=== PATIENT | female | born 1930 | race Caucasian/White ===

== ENCOUNTER 2018-11-24 18:30 | Emergency (ER) | payer MEDICARE, BC ==
[2018-11-24] MEDS ORDERED: Aspirin 81 MG Tab.Chew ONE (18:44)
[2018-11-24] MEDS ORDERED: Nitroglycerin 0.4 MG Tab.SL ONE (18:44)
[2018-11-24] MEDS ORDERED: Nitroglycerin 0.4 MG Tab.SL SL PRN (18:47)
[2018-11-24 18:54] VITALS: BP 150/53
[2018-11-24] MEDS ORDERED: Sodium Chloride 0.9% 10 ML Syringe FLUSH PRN (18:55)
--- NOTE | 2018-11-24 19:09 | EDM.PDOC ---
ED HPI GENERAL MEDICAL PROBLEM - General Chief Complaint: Chest Pain Stated Complaint: CHEST PAIN Time Seen by Provider: 11/24/18 18:50 Source of Information: Reports: Patient, Family History Limitations: Reports: No Limitations - History of Present Illness INITIAL COMMENTS - FREE TEXT/NARRATIVE: Mirta presents with her daughter for CP one hour ago. Patient was standing in the kitchen, CP started sudden, center of chest, radiated to her right side of her back and pulsatile like pain up her right carotid artery which was the most concerning symptom patient stated. She rates it a 8/10 described the CP heaviness and squeezing like CP. She denies any diaphoresis, nausea, or Shortness of breath. Hx of SD in the past with multiple stents, last stent placed in [facility] in 2006. Recent had a full physical with normal findings. She has been taking her plavix daily along with her other cardiac medications. She is severely allergic to ASA. Mid-Sternal Chest Pain Score (Numeric/FACES): 8 - Related Data Allergies Allergy/AdvReac Type Severity Reaction Status Date / Time aspirin Allergy Anaphylactic Verified 11/24/18 18:46 Shock codeine Allergy Confusion Verified 11/24/18 18:46 dextrose [From Metamucil] Allergy Respiratory Verified 11/24/18 18:46 Distress Fish Containing Products Allergy Anaphylactic Verified 11/24/18 18:46 Shock psyllium husk Allergy Respiratory Verified 11/24/18 18:46 [From Metamucil] Distress psyllium seed Allergy Respiratory Verified 11/24/18 18:46 [From Metamucil] Distress sucrose [From Metamucil] Allergy Respiratory Verified 11/24/18 18:46 Distress tramadol Allergy Confusion Verified 11/24/18 18:46 soy Allergy Anaphylactic Uncoded 11/24/18 18:46 Shock Home Meds: Home Meds Albuterol [Ventolin HFA] 2 puff INH TID PRN 11/11/14 [History] Cholecalciferol (Vitamin D3) [Vitamin D3] 800 unit PO BID 11/11/14 [History] Clopidogrel Bisulfate [Clopidogrel] 75 mg PO DAILY 11/11/14 [History] Fluticasone Propionate [Flovent HFA 110 MCG] 2 puff INH BID 11/11/14 [History] Rosuvastatin Calcium [Crestor] 10 mg PO BEDTIME 11/11/14 [History] amLODIPine Besylate [Amlodipine Besylate] 5 mg PO DAILY 11/11/14 [History] Cholecalciferol (Vitamin D3) [Vitamin D3] 2,000 unit PO SA 11/12/14 [History] Vitamin E (dl, acetate) [Vitamin E] 400 units PO DAILY 11/12/14 [History] Nitroglycerin [Nitrostat] 0.4 mg SL Q5M PRN 11/24/18 [History] Past Medical History HEENT History: Reports: Impaired Vision Cardiovascular History: Reports: High Cholesterol, Hypertension, SD, Stents Respiratory History: Reports: Asthma Gastrointestinal History: Reports: Chronic Constipation, Hemorrhoids, Other ( See Below) Other Gastrointestinal History: diverticulitis [employer]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 Dermatologic History: Reports: Psoriasis - Infectious Disease History Infectious Disease History: Reports: Chicken Pox, Measles, Shingles - Past Surgical History Other Neurological Surgeries/Procedures: Encephalitis. Social & Family History - Family History Family Medical History: Noncontributory - Caffeine Use Caffeine Use: Reports: Coffee ED ROS GENERAL - Review of Systems Review Of Systems: See Below Constitutional: Reports: No Symptoms HEENT: Reports: No Symptoms Respiratory: Reports: No Symptoms Cardiovascular: Reports: Chest Pain Endocrine: Reports: Fatigue GI/Abdominal: Reports: No Symptoms Musculoskeletal: Reports: Back Pain Skin: Reports: No Symptoms Neurological: Reports: No Symptoms Psychiatric: Reports: No Symptoms Hematologic/Lymphatic: Reports: No Symptoms Immunologic: Reports: No Symptoms ED EXAM, GENERAL - Physical Exam Exam: See Below Exam Limited By: No Limitations General Appearance: Alert, WD/WN, No Apparent Distress Ears: Normal External Exam, Normal Canal, Hearing Grossly Normal Nose: Normal Inspection, Normal Mucosa Throat/Mouth: Normal Inspection, Normal Voice, No Airway Compromise Head: Atraumatic, Normocephalic Neck: Normal Inspection, Supple, Non-Tender, Full Range of Motion Respiratory/Chest: No Respiratory Distress, Lungs Clear Cardiovascular: Normal Peripheral Pulses, Regular Rate, Rhythm, No Gallop, No JVD, No Murmur, Other (mild pedal edema, non pitting, no carotid bruits) Peripheral Pulses: 2+: Carotid (L), Carotid (R), Radial (L), Radial (R), Posterior Tibial (L), Posterior Tibial (R), Dorsalis Pedis (L), Dorsalis Pedis ( R) GI/Abdominal: Normal Bowel Sounds, Soft, Non-Tender (Female) Exam: Deferred Back Exam: Other (kyphosis ) Extremities: Non-Tender, Normal Capillary Refill Neurological: Alert, Oriented, Normal Cognition, No Motor/Sensory Deficits Psychiatric: Normal Affect, Normal Mood Skin Exam: Warm, Dry, Intact, Normal Color Lymphatic: No Adenopathy EKG INTERPRETATION EKG Date: 11/24/18 Time: 18:37 Rhythm: NSR Terry: LAD-Left Terry Deviation P-Wave: Present QRS: Other ST-T: Normal QT: Normal Comparison: No Change EKG Interpretation Comments: no signs of acute STEMI, no t wave inversion, no ST elevation or depression, no ectopy. Course - Vital Signs Text/Narrative:: 1899: After being in the [facility] she became CP free. Nitro is on hold, Bp 128 /52, SR at 63, EKG no acute changes. Saline lock established right away, labs drawn and cxr completed. Patient tells me and the RN with daughter at beside, she confirms full code status. 1929: Labs returns, trop negative thus far, CP free entire ED visit, due to significant hx of SD and stents and CAD, Dr. 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 equal distal pulses, sBP 130-150's over 60s, SR at 60- 65. She took her nightly meds, EMS were called to transfer patient, patient left [place] ED stable condition, CP free. Last Recorded V/S: Last Vital Signs Temp 96.8 F 11/24/18 18:40 Pulse 68 11/24/18 18:40 Resp 12 11/24/18 18:40 BP 150/53 H 11/24/18 18:40 Pulse Ox 94 L 11/24/18 18:40 - Orders/Labs/Meds Labs: Laboratory Tests 11/24/18 11/24/18 11/24/18 Range/Units 18:45 18:45 18:45 WBC 5.81 (5.00-10.00) 10^3/uL RBC 5.03 (3.80-5.50) 10^6/uL Hgb 14.3 (12.0-16.0) g/dL Hct 43.9 (37.0-47.0) % MCV 87.3 (82.0-92.0) fL MCH 28.4 (27.0-31.0) pg MCHC 32.6 (32.0-36.0) g/dL RDW 14.7 H (11.5-14.5) % Plt Count 164 (150-400) 10^3/uL MPV 9.7 (7.4-10.4) fL Immature Gran % (Auto) 0.2 (0.0-5.0) % Neut % (Auto) 54.5 (50.0-70.0) % Lymph % (Auto) 31.5 (20.0-40.0) % [place] % (Auto) 10.2 H (2.0-8.0) % Eos % (Auto) 3.1 H (1.0-3.0) % Baso % (Auto) 0.5 (0.0-1.0) % Immature Gran # (Auto) 0.01 (0.00-0.50) 10^3/uL Neut # (Auto) 3.17 (2.50-7.00) 10^3/uL Lymph # (Auto) 1.83 (1.00-4.00) 10^3/uL [place] # (Auto) 0.59 (0.10-0.80) 10^3/uL Eos # (Auto) 0.18 (0.10-0.30) 10^3/uL Baso # (Auto) 0.03 (0.00-0.10) 10^3/uL Sodium 143 (136-145) mmol/L Potassium 4.8 (3.3-5.3) mmol/L Chloride 107 (98-115) mmol/L Carbon Dioxide 27.6 (21.0-32.0) mmol/L Anion Gap 13.2 (5-15) mmol/L BUN 22 (6-25) mg/dL Creatinine 0.95 (0.51-1.17) mg/dL Est Cr Clr Drug Dosing 36.03 mL/min Estimated GFR (MDRD) 56 mL/min Glucose 104 H (75 - 99) mg/dL Calcium 9.1 (8.7-10.3) mg/dL Total Bilirubin 0.4 (0.2-1.0) mg/dL AST 14 L (15-37) U/L ALT 14 (12-78) U/L Alkaline Phosphatase 90 (46-116) IU/L Troponin I 0.04 (0.00-0.070) ng/mL B-Natriuretic Peptide 53 (0-100) pg/mL Total Protein 6.9 (6.4-8.2) g/dL Albumin 3.70 (3.00-4.80) g/dL Meds: Medications Discontinued Medications Generic Name Dose Route Start Last Admin Trade Name Freq PRN Reason Stop Dose Admin Aspirin Confirm 11/24/18 18:44 11/24/18 19:09 Aspirin Administered 11/24/18 18:45 Not Given Dose 324 mg .ROUTE .STK-MED ONE Nitroglycerin Confirm 11/24/18 18:44 11/24/18 19:09 Nitrostat Administered 11/24/18 18:45 Not Given Dose 0.4 mg .ROUTE .STK-MED ONE Nitroglycerin 0.4 mg 11/24/18 18:47 Nitrostat SL Q5M PRN Chest Pain Sodium Chloride 10 ml 11/24/18 18:55 Saline Flush FLUSH Q8HR PRN keep vein open Departure - Departure Time of Disposition: 20:21 Disposition: DC/Tfer to Acute Hospital 02 Reason for Transfer *Q: Other (Cardiology consult) Condition: Good Clinical Impression: Chest pain, rule out acute myocardial infarction Referrals: Ana Nolan CREMATORY ATTENDANT [Primary Care Provider] - Forms: ED Department Discharge - Problem List Review Problem List Initiated/Reviewed/Updated: Yes
--- NOTE | 2018-11-24 19:11 | CR ---
[id number] RAD/RAD Chest PA or AP 1V EXAM: SINGLE VIEW CHEST. INDICATION: CHEST PAIN COMPARISON: CORRELATION IS MADE WITH THE EXAM OF APRIL 29, 2018. FINDINGS: There is widening of the mediastinum compared with the last exam. The cardiac silhouette is prominent but stable. The lungs are clear. IMPRESSION: NO PNEUMONIA OR EDEMA. WIDENING OF THE RIGHT PARATRACHEAL STRIPE. CONSIDER FOLLOW-UP PA AND LATERAL CHEST OR CONTRAST CT CHEST IF CHEST PAIN PERSISTS AND REMAINS UNEXPLAINED. Dani Gutierrez MD 11/24/18 9089 Thank you for allowing us to participate in the care of your patient.
[2018-11-24 19:20] LABS: ANION GAP 13.2 mmol/L (5-15)
== END 2018-11-24 20:20 ==
LOC: KA.ED 18:30
DX: R07.89 Other chest pain (principal); E78.00 Pure hypercholesterolemia, unspecified; I10 Essential (primary) hypertension; I25.2 Old myocardial infarction; Z95.5 Presence of coronary angioplasty implant and graft; J45.909 Unspecified asthma, uncomplicated; Z88.8 Allergy status to other drugs, medicaments and biological substances; Z88.5 Allergy status to narcotic agent; Z91.013 Allergy to seafood; Z79.899 Other long term (current) drug therapy
CPT/HCPCS: 71045; 80053; 83880; 84484; 85025; 93005; 99285-25

== ENCOUNTER 2020-12-04 23:12 | Observation (INO) | payer MEDICARE, BC ==
[2020-12-04] MEDS ORDERED: Sodium Chloride 0.9% 10 ML Syringe FLUSH PRN (23:16)
--- NOTE | 2020-12-04 23:24 | EDM.PDOC ---
ED HPI GENERAL MEDICAL PROBLEM - General Chief Complaint: Chest Pain Stated Complaint: chest pain Time Seen by Provider: 12/04/20 23:33 Source of Information: Reports: Patient, EMS, EMS Notes Reviewed History Limitations: Reports: No Limitations - History of Present Illness INITIAL COMMENTS - FREE TEXT/NARRATIVE: Mirta, 89-year-old female, presents via ambulance to the emergency department this evening secondary of chest pain with radiation to her back and jaw. She had an uneventful day with no discomfort or concern. His evening while watching TV she developed left-sided chest pain with radiation to the jaw and back taking a nitroglycerin and calling 911. 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 She has had chronic fatigue and weakness since the COVID-19 onset classifying as a long-haul her at this time. She denies any changes in bowel or bladder. Denies any fever or chills. Occasional cough that has been nonproductive. She had a recent clinic appointment this month undergoing routine visit and having an abdominal ultrasound performed secondary of her history of AAA. This was done for surveillance not for complaint as it had been 3 years since prior. Onset: Today, Sudden Duration: Minutes: Location: Reports: Chest, Back Severity: Severe Chest pain Pain Score (Numeric/FACES): 0 - Related Data Allergies Allergy/AdvReac Type Severity Reaction Status Date / Time aspirin Allergy Anaphylactic Verified 12/04/20 23:23 Shock codeine Allergy Confusion Verified 12/04/20 23:23 dextrose [From Metamucil] Allergy Respiratory Verified 12/04/20 23:23 Distress Fish Containing Products Allergy Anaphylactic Verified 12/04/20 23:23 Shock psyllium husk Allergy Respiratory Verified 12/04/20 23:23 [From Metamucil] Distress psyllium seed Allergy Respiratory Verified 12/04/20 23:23 [From Metamucil] Distress sucrose [From Metamucil] Allergy Respiratory Verified 12/04/20 23:23 Distress tramadol Allergy Confusion Verified 12/04/20 23:23 soy Allergy Anaphylactic Uncoded 12/04/20 23:23 Shock Home Meds: Home Meds Albuterol [Ventolin HFA] 2 puff INH QID 11/11/14 [History] Cholecalciferol (Vitamin D3) [Vitamin D3] 800 unit PO BID 11/11/14 [History] Clopidogrel Bisulfate [Clopidogrel] 75 mg PO DAILY 11/11/14 [History] Fluticasone Propionate [Flovent HFA 110 MCG] 2 puff INH BID 11/11/14 [History] Rosuvastatin Calcium [Crestor] 10 mg PO BEDTIME 11/11/14 [History] amLODIPine Besylate [Amlodipine Besylate] 5 mg PO DAILY 11/11/14 [History] Cholecalciferol (Vitamin D3) [Vitamin D3] 2,000 unit PO SA 11/12/14 [History] Vitamin E (dl, acetate) [Vitamin E] 400 units PO DAILY 11/12/14 [History] Nitroglycerin [Nitrostat] 0.4 mg SL Q5M PRN 11/24/18 [History] Acetaminophen [Tylenol Extra Strength] 1,000 mg PO Q6HR PRN 12/04/20 [History] Calcium Citrate 950 mg PO DAILY 12/04/20 [History] Lutein/Minerals/Vit A,C & E [Ocuvite] 1 each PO BID 12/04/20 [History] Mometasone Furoate 30 ml TP ASDIRECTED PRN 12/04/20 [History] Past Medical History HEENT History: Reports: Impaired Vision Cardiovascular History: Reports: Aneurysm, Angina, CAD, High Cholesterol, Hypertension, AR, Stents Respiratory History: Reports: Asthma Gastrointestinal History: Reports: Chronic Constipation, Hemorrhoids, Other (See Below) Other Gastrointestinal History: diverticulitis 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 Psychiatric History: Reports: Depression Endocrine/Metabolic History: Reports: Vitamin D Deficiency Oncologic (Cancer) History: Reports: Malignant Melanoma Dermatologic History: Reports: Melanoma, Psoriasis - Infectious Disease History Infectious Disease History: Reports: Chicken Pox, Measles, Shingles Other Infectious Disease History: Co-vid 19 - Past Surgical History Other Neurological Surgeries/Procedures: Encephalitis. Social & Family History - Family History Family Medical History: No Pertinent Family History - Tobacco Use Tobacco Use Within Last Twelve Months: No - Caffeine Use Caffeine Use: Reports: Coffee - Alcohol Use Alcohol Use Frequency: Rarely - Recreational Drug Use Recreational Drug Use: No ED ROS GENERAL - Review of Systems Review Of Systems: Comprehensive ROS is negative, except as noted in HPI. ED EXAM, GENERAL - Physical Exam Exam: See Below Free Text/Narrative:: Alert, oriented appearing somewhat fatigued with no cyanosis nor pallor nor diaphoresis. HEENT shows chronic skin darkening to the left side of her face. There is no injury nor deformity otherwise. PERRLA no icterus no injection. [place] moist mucous membranes Neck is soft supple there is a mild prominence of nodule/lymph node to the left side of the anterior cervical chain. I do not appreciate bruit. Thorax is mildly diminished with no wheezes nor crackles noted. No tactile fremitus appreciated. Cardiac is S1-S2 I do not appreciate murmur. Abdomen is soft bowel sounds are present no tenderness is noted. Lower extremities have +1 edema which she states is chronic in nature with warm dry skin with extreme tenderness which she states is chronic for her to palpation of the feet and ankles. rectal and breast are deferred. #1 Interpretation EKG Date: 12/05/20 Time: 23:40 Rhythm: NSR Rate (Beats/Min): 62 P-Wave: Present QRS: Other (notched) ST-T: Other QT: Normal Comparison: Change From Previous EKG Course - Vital Signs Last Recorded V/S: Last Vital Signs Temp 96.6 F L 12/04/20 23:44 Pulse 65 12/04/20 23:44 Resp 20 12/04/20 23:44 BP 172/94 H 12/04/20 23:44 Pulse Ox 94 L 12/04/20 23:44 - Orders/Labs/Meds Orders: Active Orders 24 hr Category Date Time Status EKG Documentation Completion [RC] ASDIRECTED Care 12/04/20 23:16 Active Peripheral IV Care [RC] . DIRECTED Care 12/04/20 23:16 Active CTA Chest W WO Contrast [Ang Chest] [CT] Stat Exams 12/05/20 00:36 Ordered Chest 1V Frontal [CR] Stat Exams 12/04/20 23:17 Ordered Sodium Chloride 0.9% [Saline Flush] Med 12/04/20 23:16 Active 10 ml FLUSH Q8HR PRN Peripheral IV Insertion Adult [OM.PC] Routine Oth 12/04/20 23:16 Ordered EKG 12 Lead [EK] Urgent Ther 12/04/20 23:16 Ordered Medication Orders Sodium Chloride (Sodium Chloride 0.9% 10 Ml Syringe) 10 ml FLUSH Q8HR PRN PRN Reason: keep vein open Labs: Laboratory Tests 12/04/20 12/04/20 12/04/20 Range/Units 23:40 23:40 23:40 WBC 6.56 (5.00-10.00) 10^3/uL RBC 4.88 (3.80-5.50) 10^6/uL Hgb 13.5 (12.0-16.0) g/dL Hct 42.1 (37.0-47.0) % MCV 86.3 (82.0-92.0) fL MCH 27.7 (27.0-31.0) pg MCHC 32.1 (32.0-36.0) g/dL RDW 15.1 H (11.5-14.5) % Plt Count 154 (150-400) 10^3/uL MPV 9.8 (7.4-10.4) fL Immature Gran % (Auto) 0.2 (0.0-5.0) % Neut % (Auto) 65.5 (50.0-70.0) % Lymph % (Auto) 20.9 (20.0-40.0) % [place] % (Auto) 11.3 H (2.0-8.0) % Eos % (Auto) 1.8 (1.0-3.0) % Baso % (Auto) 0.3 (0.0-1.0) % Neut # (Auto) 4.30 (2.50-7.00) 10^3/uL Lymph # (Auto) 1.37 (1.00-4.00) 10^3/uL [place] # (Auto) 0.74 (0.10-0.80) 10^3/uL Eos # (Auto) 0.12 (0.10-0.30) 10^3/uL Baso # (Auto) 0.02 (0.00-0.10) 10^3/uL Immature Gran # (Auto) 0.01 (0.00-0.50) 10^3/uL APTT 24.8 (22.8-31.4) SEC D-Dimer, Quantitative 597 H (<400) ng/mL Sodium 144 (136-145) mmol/L Potassium 4.0 (3.5-5.1) mmol/L Chloride 107 (98-107) mmol/L Carbon Dioxide 26.5 (21.0-32.0) mmol/L Anion Gap 14.5 (5-15) mmol/L BUN 16 (7-18) mg/dL Creatinine 0.79 (0.51-1.17) mg/dL Est Cr Clr Drug Dosing 45.19 mL/min Estimated GFR (MDRD) > 60 mL/min Glucose 112 (70-140) mg/dL Calcium 8.3 L (8.7-10.3) mg/dL Total Bilirubin 0.3 (0.2-1.0) mg/dL AST < 9 L (15-37) U/L ALT 15 (14-63) U/L Alkaline Phosphatase 101 (46-116) U/L Troponin I High Sens 11.800 (0-51.000) pg/mL B-Natriuretic Peptide (0-100) pg/mL Total Protein 6.6 (6.4-8.2) g/dL Albumin 3.53 (3.40-5.00) g/dL SARS CoV-2 RNA Rapid VERNA (NEGATIVE) 12/04/20 12/05/20 Range/Units 23:55 00:00 WBC (5.00-10.00) 10^3/uL RBC (3.80-5.50) 10^6/uL Hgb (12.0-16.0) g/dL Hct (37.0-47.0) % MCV (82.0-92.0) fL MCH (27.0-31.0) pg MCHC (32.0-36.0) g/dL RDW (11.5-14.5) % Plt Count (150-400) 10^3/uL MPV (7.4-10.4) fL Immature Gran % (Auto) (0.0-5.0) % Neut % (Auto) (50.0-70.0) % Lymph % (Auto) (20.0-40.0) % [place] % (Auto) (2.0-8.0) % Eos % (Auto) (1.0-3.0) % Baso % (Auto) (0.0-1.0) % Neut # (Auto) (2.50-7.00) 10^3/uL Lymph # (Auto) (1.00-4.00) 10^3/uL [place] # (Auto) (0.10-0.80) 10^3/uL Eos # (Auto) (0.10-0.30) 10^3/uL Baso # (Auto) (0.00-0.10) 10^3/uL Immature Gran # (Auto) (0.00-0.50) 10^3/uL APTT (22.8-31.4) SEC D-Dimer, Quantitative (<400) ng/mL Sodium (136-145) mmol/L Potassium (3.5-5.1) mmol/L Chloride (98-107) mmol/L Carbon Dioxide (21.0-32.0) mmol/L Anion Gap (5-15) mmol/L BUN (7-18) mg/dL Creatinine (0.51-1.17) mg/dL Est Cr Clr Drug Dosing mL/min Estimated GFR (MDRD) mL/min Glucose (70-140) mg/dL Calcium (8.7-10.3) mg/dL Total Bilirubin (0.2-1.0) mg/dL AST (15-37) U/L ALT (14-63) U/L Alkaline Phosphatase (46-116) U/L Troponin I High Sens (0-51.000) pg/mL B-Natriuretic Peptide 83 (0-100) pg/mL Total Protein (6.4-8.2) g/dL Albumin (3.40-5.00) g/dL SARS CoV-2 RNA Rapid VERNA Negative (NEGATIVE) Meds: Medications Generic Name Dose Route Start Last Admin Trade Name Freq PRN Reason Stop Dose Admin Sodium Chloride 10 ml 12/04/20 23:16 Sodium Chloride 0.9% 10 Ml Syringe FLUSH Q8HR PRN keep vein open - Radiology Interpretation Free Text/Narrative:: Minimal Fibrotic changes bilaterally. No CHF No infiltrates or pleural effusion. Stable cardiomegaly. - Re-Assessments/Exams Free Text/Narrative Re-Assessment/Exam: 12/05/20 00:09 Remains pain free, tired/fatigued. 12/05/20 00:45 Advised of elevated d dimer with CTA to be performed to rule out pulmonary embolism. Departure - Departure Time of Disposition: 02:21 Disposition: Refer to Observation Condition: Good Clinical Impression: Chest pain, rule out acute myocardial infarction, Elevated d-dimer, COVID-19 ruled out by laboratory testing - Discharge Information *PRESCRIPTION DRUG MONITORING PROGRAM REVIEWED*: Not Applicable *COPY OF PRESCRIPTION DRUG MONITORING REPORT IN PATIENT KIMBERLYN: Not Applicable Referrals: Rebeca Pearce, REFRACTORY MIXER [Primary Care Provider] - Forms: ED Department Discharge Additional Instructions: Discussion with Dr. Shital King, agrees to observation, RO mi with repeat errol wills. Sepsis Event Note (ED) - Focused Exam Vital Signs: Vital Signs Temp Pulse Resp BP Pulse Ox 12/04/20 23:44 96.6 F L 65 20 172/94 H 94 L ED Communication - ED Communication Date/Time Date: 12/05/20 Time Called: 02:18 - Discussed Case With (1) Discussed Case With (1): Admitting Provider Person/s Notified (1): Dr Filippo King - Problem List & Annotations (1) Chest pain, rule out acute myocardial infarction SNOMED Code(s): 35997605 Code(s): R07.9 - CHEST PAIN, UNSPECIFIED Status: Acute (2) Elevated d-dimer SNOMED Code(s): 703999053 Code(s): R79.89 - OTHER SPECIFIED ABNORMAL FINDINGS OF BLOOD CHEMISTRY Status: Acute (3) COVID-19 ruled out by laboratory testing SNOMED Code(s): 951197537056138351, 517957724762929627 Code(s): Z20.822 - CONTACT WITH AND (SUSPECTED) EXPOSURE TO COVID-19 Status: Acute - Problem List Review Problem List Initiated/Reviewed/Updated: Yes - My Orders Last 24 Hours: My Active Orders 12/04/20 23:16 EKG Documentation Completion [RC] ASDIRECTED Peripheral IV Care [RC] . DIRECTED Sodium Chloride 0.9% [Saline Flush] 10 ml FLUSH Q8HR PRN Peripheral IV Insertion Adult [OM.PC] Routine EKG 12 Lead [EK] Urgent 12/04/20 23:17 Chest 1V Frontal [CR] Stat 12/05/20 00:36 CTA Chest W WO Contrast [Ang Chest] [CT] Stat - Assessment/Plan Last 24 Hours: My Active Orders 12/04/20 23:16 EKG Documentation Completion [RC] ASDIRECTED Peripheral IV Care [RC] . DIRECTED Sodium Chloride 0.9% [Saline Flush] 10 ml FLUSH Q8HR PRN Peripheral IV Insertion Adult [OM.PC] Routine EKG 12 Lead [EK] Urgent 12/04/20 23:17 Chest 1V Frontal [CR] Stat 12/05/20 00:36 CTA Chest W WO Contrast [Ang Chest] [CT] Stat Plan: Discussion with Dr. Shital King, agrees to observation, RO mi with repeat troponin.
[2020-12-05 00:23] LABS: ANION GAP 14.5 mmol/L (5-15); CHLORIDE,CL 107 mmol/L (98-107); PTT,PARTIAL THROMBOPLSTIN TIME 24.8 SEC (22.8-31.4); SODIUM,NA 144 mmol/L (136-145)
[2020-12-05] MEDS ORDERED: Albuterol 8 GM Inhaler INH PRN (02:27)
[2020-12-05] MEDS ORDERED: [UNRECOGNIZED DRUG - OTHER] INH PRN (03:38)
[2020-12-05] MEDS ORDERED: Atropine 0.1 MG/ML 10 ML Syringe IVPUSH PRN (03:47)
[2020-12-05] MEDS ORDERED: EPINEPHrine 1:10,000 1 MG/10 ML Syringe IVPUSH PRN (03:47)
[2020-12-05] MEDS ORDERED: Nitroglycerin 0.4 MG Tab.SL SL PRN (03:47)
[2020-12-05] MEDS ORDERED: Lidocaine 2% 100 MG/5 ML Syringe IVPUSH PRN (03:47)
--- NOTE | 2020-12-05 07:10 | CT ---
[id number] CT/CTA Chest . 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
--- NOTE | 2020-12-05 07:12 | CR ---
[id number] RAD/RAD Chest Portable EXAM: PORTABLE CHEST RADIOGRAPH. INDICATION: CHEST PAIN COMPARISON: CORRELATION IS MADE WITH NOVEMBER 24, 2018 FINDINGS: There is pulmonary parenchymal fibrosis There is no pneumonia or edema. The cardiac silhouette is stable IMPRESSION: NO ACUTE PROCESS. Dani Gutierrez MD 12/05/20 0363 Thank you for allowing us to participate in the care of your patient.
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
[2020-12-05 11:06] VITALS: BP 123/64; PULSE 58
--- NOTE | 2020-12-05 11:17 | PCM.DCSUM1 ---
Discharge Summary - Hospital Course Free Text/Narrative:: Date of admission: 12/05/20 Date of discharge: 12/05/20 Admission diagnoses: # Chest pain, R/O VA # Elevated D-dimer Discharge diagnoses: # CAD: Continue plavix 75 mg daily, nitro prn. # HTN: Continue norvasc 5 mg daily. # Mild persistent asthma: Continue flovent 110 mcg 2 puffs BID, albuterol HFA prn. # HLD: Continue crestor 10 mg atHS. # Vitamin D deficiency - supplementation PO BID. # Depression - two older sisters recently . # Hx of melanoma of left forearm. Left side of nosehas a dark, irregular lesion. Refused to have this removed previously. # Osteoporosis: On citracal 950 mg daily, Vit D BID daily. # Chronic bilateral LBP/chronic midline thoracic back pain: On [id number] mg q6h prn. # AAA w/o rupture - repeat abdominal US for monitoring completed on 12/03/20: Mild interval increase in size of fusiform infrarenal abdominal aortic aneurysm, currently measuring up to 4 cm. Mild enlargement of the more proximal aorta at the level of the renal artery origins, measuring up to 3.2 cm. # Overweight. Hospital course: HPI summary: Mirta is an 89y F patient who experienced acute onset of left sided chest pain with radiation to the back and jaw while watching TV last evening. She took a nitro and called 911. Denies new onset SOB. 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 She has had an occasional non-productive cough. No changes in bowel or bladder function. Patient was recently seen at the [facility] by PCP, Rebeca Pearce APRN, [employer]IOR [employer] SALES CONSULTANT on 11/25/20 for medication management and chronic conditions. Patient also had a repeat abdominal ultrasound for monitoring of known AAA. ED course: Patient arrived per EMS. Chest pain resolved with one nitro prior to arrival to ER. CXR indicative of pulmonary parenchymal fibrosis, no acute process. EKG - NSR with notched QRS. CBC unremarkable. CMP unremarkable. D- dimer elevated at 597. CTA negative for PE. Initial troponin negative 11.800. Patient admitted to observation status per Dr Isaacs with [facility] on-call service for R/O VA and repeat troponin. 12/05/20: Patient reports she feels tired this morning, however she has been more fatigued and "not herself" since COVID in February,. She offers no additonal complaints. She denies chest pain, palpitations, shortness of breath, diaphoresis, nausea. Vitals stable: T 97.3, BP 123/58, HR 60, RR 18, O2 sat 94% on room air. Troponin repeated this morning and found to be normal. Will plan to discharge patient home later today. Discharge and follow-up recommendations: - Discharge to home per self care - New medications at discharge: No new medications; continue same home meds upon discharge - Follow-up with PCP, Rebeca Pearce APRN, SENIOR [employer] SAL[employer] CONSULTANT on 12/12/20 at 2:00. - Discharge Data Discharge Date: 12/05/20 Discharge Disposition: Home, Self-Care 01 Condition: Good - Referral to Home Health Primary Care Physician: Rebeca Pearce NP - Patient Instructions Diet: Usual Diet as Tolerated Activity: As Tolerated Other/Special Instructions: Resume home medications - no medication changes at this time. - Discharge Plan *PRESCRIPTION DRUG MONITORING PROGRAM REVIEWED*: Not Applicable *COPY OF PRESCRIPTION DRUG MONITORING REPORT IN PATIENT KIMBERLYN: Not Applicable Home Medications: Home Meds Albuterol [Ventolin HFA] 2 puff INH QID 11/11/14 [History] Cholecalciferol (Vitamin D3) [Vitamin D3] 800 unit PO BID 11/11/14 [History] Clopidogrel Bisulfate [Clopidogrel] 75 mg PO DAILY 11/11/14 [History] Fluticasone Propionate [Flovent HFA 110 MCG] 2 puff INH BID 11/11/14 [History] Rosuvastatin Calcium [Crestor] 10 mg PO BEDTIME 11/11/14 [History] amLODIPine Besylate [Amlodipine Besylate] 5 mg PO DAILY 11/11/14 [History] Cholecalciferol (Vitamin D3) [Vitamin D3] 2,000 unit PO SA 11/12/14 [History] Vitamin E (dl, acetate) [Vitamin E] 400 units PO DAILY 11/12/14 [History] Nitroglycerin [Nitrostat] 0.4 mg SL Q5M PRN 11/24/18 [History] Acetaminophen [Tylenol Extra Strength] 1,000 mg PO Q6HR PRN 12/04/20 [History] Calcium Citrate 950 mg PO DAILY 12/04/20 [History] Lutein/Minerals/Vit A,C & E [Ocuvite] 1 each PO BID 12/04/20 [History] Mometasone Furoate 30 ml TP ASDIRECTED PRN 12/04/20 [History] Oxygen Therapy Mode: Room Air Referrals: Rebeca Pearce [employer]OD SPECIAL EDUCATOR [Primary Care Provider] - 12/12/20 2:00 pm - Discharge Summary/Plan Comment DC Time >30 min.: Yes - General Info Date of Service: 12/05/20 Functional Status: Reports: Pain Controlled. Denies: New Symptoms - Review of Systems General: Reports: Fatigue (chronic since COVID in 03/03) HEENT: Reports: No Symptoms Pulmonary: Reports: No Symptoms. Denies: Shortness of Breath, Cough Cardiovascular: Reports: No Symptoms. Denies: Chest Pain, Palpitations, Edema Gastrointestinal: Reports: No Symptoms. Denies: Abdominal Pain, Constipation, Diarrhea, Nausea Genitourinary: Reports: No Symptoms Musculoskeletal: Reports: No Symptoms Skin: Reports: Other (chronic dark lesion to left side of face) Neurological: Reports: No Symptoms Psychiatric: Reports: No Symptoms - Patient Data Vitals - Most Recent: Last Vital Signs Temp 97.6 F 12/05/20 11:00 Pulse 58 L 12/05/20 11:00 Resp 16 12/05/20 11:00 BP 123/64 12/05/20 11:00 Pulse Ox 93 L 12/05/20 11:00 Weight - Most Recent: 150 lb 14.4 oz I&O - Last 24 hours: Intake & Output 12/04/20 12/05/20 12/05/20 22:59 06:59 14:59 Intake Total 0 Balance 0 Lab Results - Last 24 hrs: Laboratory Results - last 24 hr 12/04/20 12/04/20 12/04/20 Range/Units 23:40 23:40 23:40 WBC 6.56 (5.00-10.00) 10^3/uL RBC 4.88 (3.80-5.50) 10^6/uL Hgb 13.5 (12.0-16.0) g/dL Hct 42.1 (37.0-47.0) % MCV 86.3 (82.0-92.0) fL MCH 27.7 (27.0-31.0) pg MCHC 32.1 (32.0-36.0) g/dL RDW 15.1 H (11.5-14.5) % Plt Count 154 (150-400) 10^3/uL MPV 9.8 (7.4-10.4) fL Immature Gran % (Auto) 0.2 (0.0-5.0) % Neut % (Auto) 65.5 (50.0-70.0) % Lymph % (Auto) 20.9 (20.0-40.0) % [place] % (Auto) 11.3 H (2.0-8.0) % Eos % (Auto) 1.8 (1.0-3.0) % Baso % (Auto) 0.3 (0.0-1.0) % Neut # (Auto) 4.30 (2.50-7.00) 10^3/uL Lymph # (Auto) 1.37 (1.00-4.00) 10^3/uL [place] # (Auto) 0.74 (0.10-0.80) 10^3/uL Eos # (Auto) 0.12 (0.10-0.30) 10^3/uL Baso # (Auto) 0.02 (0.00-0.10) 10^3/uL Immature Gran # (Auto) 0.01 (0.00-0.50) 10^3/uL APTT 24.8 (22.8-31.4) SEC D-Dimer, Quantitative 597 H (<400) ng/mL Sodium 144 (136-145) mmol/L Potassium 4.0 (3.5-5.1) mmol/L Chloride 107 (98-107) mmol/L Carbon Dioxide 26.5 (21.0-32.0) mmol/L Anion Gap 14.5 (5-15) mmol/L BUN 16 (7-18) mg/dL Creatinine 0.79 (0.51-1.17) mg/dL Est Cr Clr Drug Dosing 45.19 mL/min Estimated GFR (MDRD) > 60 mL/min Glucose 112 (70-140) mg/dL Calcium 8.3 L (8.7-10.3) mg/dL Total Bilirubin 0.3 (0.2-1.0) mg/dL AST < 9 L (15-37) U/L ALT 15 (14-63) U/L Alkaline Phosphatase 101 (46-116) U/L Troponin I High Sens 11.800 (0-51.000) pg/mL B-Natriuretic Peptide (0-100) pg/mL Total Protein 6.6 (6.4-8.2) g/dL Albumin 3.53 (3.40-5.00) g/dL SARS CoV-2 RNA Rapid VERNA (NEGATIVE) 12/04/20 12/05/20 12/05/20 Range/Units 23:55 00:00 07:30 WBC (5.00-10.00) 10^3/uL RBC (3.80-5.50) 10^6/uL Hgb (12.0-16.0) g/dL Hct (37.0-47.0) % MCV (82.0-92.0) fL MCH (27.0-31.0) pg MCHC (32.0-36.0) g/dL RDW (11.5-14.5) % Plt Count (150-400) 10^3/uL MPV (7.4-10.4) fL Immature Gran % (Auto) (0.0-5.0) % Neut % (Auto) (50.0-70.0) % Lymph % (Auto) (20.0-40.0) % [place] % (Auto) (2.0-8.0) % Eos % (Auto) (1.0-3.0) % Baso % (Auto) (0.0-1.0) % Neut # (Auto) (2.50-7.00) 10^3/uL Lymph # (Auto) (1.00-4.00) 10^3/uL [place] # (Auto) (0.10-0.80) 10^3/uL Eos # (Auto) (0.10-0.30) 10^3/uL Baso # (Auto) (0.00-0.10) 10^3/uL Immature Gran # (Auto) (0.00-0.50) 10^3/uL APTT (22.8-31.4) SEC D-Dimer, Quantitative (<400) ng/mL Sodium (136-145) mmol/L Potassium (3.5-5.1) mmol/L Chloride (98-107) mmol/L Carbon Dioxide (21.0-32.0) mmol/L Anion Gap (5-15) mmol/L BUN (7-18) mg/dL Creatinine (0.51-1.17) mg/dL Est Cr Clr Drug Dosing mL/min Estimated GFR (MDRD) mL/min Glucose (70-140) mg/dL Calcium (8.7-10.3) mg/dL Total Bilirubin (0.2-1.0) mg/dL AST (15-37) U/L ALT (14-63) U/L Alkaline Phosphatase (46-116) U/L Troponin I High Sens 15.100 (0-51.000) pg/mL B-Natriuretic Peptide 83 (0-100) pg/mL Total Protein (6.4-8.2) g/dL Albumin (3.40-5.00) g/dL SARS CoV-2 RNA Rapid VERNA Negative (NEGATIVE) Med Orders - Current: Current Medications Albuterol (Albuterol Inhaler Assal Salbutamol 20 Mg Inhaler Own Med) 0 gm INH Q4H PRN PRN Reason: Wheezing Atropine Sulfate (Atropine 0.1 Mg/Ml 10 Ml Syringe) 0.5 - 1 mg IVPUSH ASDIRECTED PRN PRN Reason: Heart. Epinephrine HCl (Epinephrine 1:10,000 1 Mg/10 Ml Syringe) 1 mg IVPUSH ASDIRECTED PRN PRN Reason: Heart. Lidocaine HCl (Lidocaine 2% 100 Mg/5 Ml Syringe) 0 mg IVPUSH ASDIRECTED PRN PRN Reason: Heart. Nitroglycerin (Nitroglycerin 0.4 Mg Tab.Sl) 0.4 mg SL ASDIRECTED PRN PRN Reason: Heart. Sodium Chloride (Sodium Chloride 0.9% 10 Ml Syringe) 10 ml FLUSH Q8HR PRN PRN Reason: keep vein open Discontinued Medications Albuterol (Albuterol 8 Gm Inhaler) 90 gm INH Q4H PRN PRN Reason: Wheezing - Exam Quality Assessment: Denies: Supplemental Oxygen General: Reports: Alert, Oriented, Cooperative, No Acute Distress HEENT: Reports: Pupils Equal, Mucous Membr. Moist/[place], Other (enlarged lymph node to left cervical chain) Neck: Reports: Supple, Trachea Midline Lungs: Reports: Clear to Auscultation, Normal Respiratory Effort, Decreased Breath Sounds Cardiovascular: Reports: Regular Rate, Regular Rhythm, No Murmurs GI/Abdominal Exam: Normal Bowel Sounds, Soft, Non-Tender, No Distention (Female) Exam: Deferred Rectal (Female) Exam: Deferred Back Exam: Reports: Normal Inspection, Full Range of Motion Extremities: Normal Inspection, Normal Range of Motion, Non-Tender, No Pedal Edema, Normal Capillary Refill Skin: Reports: Warm, Dry, Intact, Other (Chronic dark, irregular lesion to left side of face) Neurological: Reports: No New Focal Deficit, Normal Speech Psy/Mental Status: Reports: Alert, Normal Affect, Normal Mood
== END 2020-12-05 12:53 | disposition home or self-care (01) ==
LOC: KA.ED 23:12 → KA.MS 12-05 02:15 → UNDOADMOB 12-05 02:15 → KA.MS 12-05 02:21
PROVIDERS: ADMIT Family Medicine; ATTEND Family Medicine
DX: R07.9 Chest pain, unspecified (principal); R79.1 Abnormal coagulation profile; I25.10 Atherosclerotic heart disease of native coronary artery without angina pectoris; I10 Essential (primary) hypertension; E78.5 Hyperlipidemia, unspecified; E55.9 Vitamin D deficiency, unspecified; F32.9 Major depressive disorder, single episode, unspecified; M81.0 Age-related osteoporosis without current pathological fracture; M54.5 Low back pain; I71.4 Abdominal aortic aneurysm, without rupture; J45.909 Unspecified asthma, uncomplicated; E66.3 Overweight; Z86.16 Personal history of COVID-19; Z20.822 Contact with and (suspected) exposure to COVID-19; Z79.899 Other long term (current) drug therapy; Z88.6 Allergy status to analgesic agent; Z88.8 Allergy status to other drugs, medicaments and biological substances; Z91.018 Allergy to other foods; Z85.820 Personal history of malignant melanoma of skin
CPT/HCPCS: 36415; 71045; 71275; 80053; 83880; 84484; 85025; 85379; 85730; 99284; 99285-25; G0378; U0002